=== PATIENT | female | born 1940 | race Caucasian/White ===

== ENCOUNTER 2021-01-15 14:10 | Emergency (ER) | payer OTHER ==
[~2021-01-15] VITALS: Ht 157.5 cm; Wt 59.0 kg
[2021-01-15] MEDS ORDERED: LEVO-T25 MCG PO (14:23)
[2021-01-15] MEDS ORDERED: LISINOPRIL20 MG PO (14:23)
[2021-01-15] MEDS ORDERED: OMEPRAZOLE40 MG PO (14:23)
[2021-01-15] MEDS ORDERED: LIPITOR 20 MG T20 M1 PO (14:25)
[2021-01-15] MEDS ORDERED: HYDROCHLOROTHIA25 M1 PO (14:25)
[2021-01-15 14:27] LABS: ABSOLUTE EOSINOPHILS 0.1 thou/uL (0.0-0.7); ABSOLUTE LYMPHOCYTES 2.8 thou/uL (0.8-5.3); ABSOLUTE MONOCYTES 0.6 thou/uL (0.0-1.2); ABSOLUTE NEUTROPHILS 3.1 thou/uL (1.6-8.1); BASOPHILS 0.6 %; EOSINOPHILS 1.2 %; HEMATOCRIT 34.1 % (37.0-47.0); HEMOGLOBIN 11.5 gm/dL (12.0-15.0); LYMPHOCYTES 42.8 %; MCH 31.4 pg (26.0-34.0); MCHC 33.6 g/dL (28.0-37.0); MCV 93.5 fL (80.0-100.0); MPV 8.5 fl. (7.2-11.1); NUCLEATED RBCS 0 /100WBC; PLATELET COUNT* 254 thou/uL (150-400); POLYS 46.4 %; RBC 3.65 mil/uL (4.20-5.00); RDW-CV 12.6 % (10.5-14.5); WBC 6.7 thou/uL (4.0-11.0)
[2021-01-15 14:37] LABS: CALCIUM 8.1 mg/dL (8.5-10.1); CREATININE 1.4 mg/dL (0.6-1.3); POTASSIUM 3.5 mmol/L (3.5-5.1)
[2021-01-15 14:41] LABS: ALBUMIN 3.3 g/dL (3.4-5.0); TOTAL BILIRUBIN 0.4 mg/dL (<0.1-1.0); TOTAL PROTEIN 6.2 g/dL (6.4-8.2)
[2021-01-15 15:28] LABS: URINE BILIRUBIN NEGATIVE (Negative); URINE BLOOD NEGATIVE (Negative); URINE CLARITY CLEAR; URINE COLOR YELLOW; URINE GLUCOSE-RANDOM NEGATIVE (Negative); URINE KETONES NEGATIVE (Negative); URINE LEUKOCYTES NEGATIVE (Negative); URINE NITRITE NEGATIVE (Negative); URINE PROTEIN NEGATIVE (Negative); URINE UROBILINOGEN 0.2 E.U./dl (0.2-1.0)
--- NOTE | 2021-01-15 16:28 | EKG ---
[place] [address] ELECTROCARDIOGRAM REPORT Name: SHAAN FRANCOIS Room: [facility]#: [id number] Admission: 01/15/21 Attend Phys: Discharge: Date of : 44 Date of Service: 01/15/21 1418 Report #: [id number] THIS REPORT FOR: //name// [facility] ED Test Date: 2021-01-15 Test Time: 14:18:20 Pat Name: SHAAN FRANCOIS Department: Room: Gender: Nuclear Medical [employer]: [facility] : 1940 Requested By: Bernardino Paiz Order Number: [id number] MD: Elias Son Measurements Intervals [place] Rate: 77 P: 79 MD: 154 QRS: 68 QRSD: 85 T: -1 QT: 370 QTc: 419 Interpretive Statements Sinus rhythm Probable left atrial enlargement No previous ECG available for comparison Electronically Signed On 01-15-2021 16:28:04 [employer] COMPLIANCE by Elias Son [email or web address] <ELECTRONICALLY SIGNED> By: Elias Son MD, [facility] 01/15/21 1628 1418 1418 Elias Son MD, [facility] /EPI
[2021-01-15 17:36] VITALS: BP 101/48
== END 2021-01-15 17:37 | disposition home or self-care (01) ==
LOC: M.ERS 14:10
PROVIDERS: Emergency Medicine
DX: R55 Syncope and collapse (principal); H57.89 Other specified disorders of eye and adnexa; E11.9 Type 2 diabetes mellitus without complications; Z79.899 Other long term (current) drug therapy